=== PATIENT | female | born 2000 | race Caucasian/White ===

== ENCOUNTER 2023-05-06 23:19 | Inpatient (IN) | payer MEDICAID, SELFPAY ==
[2023-05-07] VITALS (124 sets, daily range): BP systolic 108–145; BP diastolic 60–97; PULSE 66–103; RESP 16–18; TEMP 36.4–37.3; O2SAT 94–100; BMI 32.1
[2023-05-07] MEDS: LACTATED RINGERS 1,000 ML 125 ML IV CONT ×3 (02:44→07:07)
[2023-05-07 03:01] LABS: Basophils Percent Auto 0.3 % (0.2-1.2); Eosinophils Percent Auto 0.1 % (0-4.4); Hematocrit 39.6 % (37.0-47.0); Hemoglobin 13.4 g/dL (12.0-15.0); Immature Granulocyte Absolute 0.06 K/mm3 (0.00-0.031); Immature Granulocyte Percent A 0.4 % (0-0.5); Lymphocytes Absolute Auto 0.68 K/mm3 (0.9-3.2); Lymphocytes Percent Auto 4.7 % (18.3-44.2); Mean Corpuscular HGB Conc 33.8 g/dl (32-36); Mean Corpuscular Hemoglobin 30.8 pg (26-34); Mean Platelet Volume 10.8 fl (7.4-10.4); Monocytes Absolute Auto 0.2 K/mm3 (0.1-0.6); Monocytes Percent Auto 1.6 % (2.6-8.5); Neutrophils Absolute Auto 13.3 K/mm3 (1.3-6.7); Neutrophils Percent Auto 92.9 % (45.5-73.1); Platelet Count Result 244 k/mm3 (150-375); Red Blood Count 4.35 M/mm3 (4.2-5.4); Red Cell Distribution Width 12.9 % (11.5-14.5); White Blood Count 14.3 K/mm3 (4.5-10.0)
[2023-05-07] MEDS: AMPICILLIN 2 GM/NS 100 ML 2 GM/100 ML BAG IVPB (03:02)
[2023-05-07] MEDS: fentaNYL CITRATE INJ (*CRX) 100 MCG/2 ML VIAL IV PUSH (04:07)
--- NOTE | 2023-05-07 05:31 | WPDANESEPP ---
Anes - Eval Pre Procedure Procedure: labor epidural Date/Time: 05/07/23 05:31 Surgeon: tutu Preop Diagnosis: pain during labor Pre Op Diagnosis: Contractions Patient Data Age: 22 Gender: F Height: 1.63 m Weight: 85 kg Allergies Allergy/AdvReac Type Severity Reaction Status Date / Time No Known Allergies Allergy Unverified 05/26/11 19:03 Laboratory Tests 05/07/23 02:46 WBC 14.3 H K/mm3 (4.5-10.0) RBC 4.35 M/mm3 (4.2-5.4) Hgb 13.4 g/dL (12.0-15.0) Hct 39.6 % (37.0-47.0) MCV 91.0 fl (80-100) MCH 30.8 pg (26-34) MCHC 33.8 g/dl (32-36) RDW 12.9 % (11.5-14.5) Plt Count 244 k/mm3 (150-375) MPV 10.8 H fl (7.4-10.4) Immature Gran % (Auto) 0.4 % (0-0.5) Neut % (Auto) 92.9 H % (45.5-73.1) Lymph % (Auto) 4.7 L % (18.3-44.2) [place] % (Auto) 1.6 L % (2.6-8.5) Eos % (Auto) 0.1 % (0-4.4) Baso % (Auto) 0.3 % (0.2-1.2) Lymph # (Auto) 0.68 L K/mm3 (0.9-3.2) [place] # (Auto) 0.2 K/mm3 (0.1-0.6) Eos # (Auto) 0.0 K/mm3 (0-0.3) Baso # (Auto) 0.0 K/mm3 (0.0-0.1) Abs Immat Gran (auto) 0.06 H K/mm3 (0.00-0.031) Absolute Neuts (auto) 13.3 H K/mm3 (1.3-6.7) Absolute Nucleated RBC 0.000 K/mm3 (0.0-0.012) Nucleated RBC % 0.0 % (0.0-0.2) RPR Pending Blood Type B Positive Antibody Screen Negative Patient hx anesthesia problems: none Family hx anesthesia problems: none Results Review: All pre-operative results and documents have been reviewed as part of the pre-operative evaluation. [facility] Past Medical History Medical History (Updated 05/07/23 @ 05:32 by Venita Pal CRNA) IUP (intrauterine ), incidental Obesity Social History Social History Smoking status: Never smoker Do You Feel Safe in your Home?: Yes Lack of Transportation: No Lack of Food: Never True Current Housing: I Have Housing Concerned About Future Housing: No Difficulty Paying Gas/Electric Bills: No Difficulty Paying for Meds: No Currently Unemployed: YES Education: High School Diploma/GED Difficulty w/ Childcare or Family Care: No Spiritual care concerns: No Exam Day of Procedure 05/07/23 05:31
--- NOTE | 2023-05-07 06:42 | PM.IMHP ---
H&P: HPI History of Present Illness Date/Time: 05/07/23 06:42 Chief Complaint: labor at 36 weeks Narrative: 22-year-old 2 para 0 at 36-,1/7 weeks gestation complaining of active labor. has uncomplicated prior. Group B strep is cervix is changed admission PMFSH Past Medical History Medical History IUP (intrauterine ), incidental Obesity Social History Social History Smoking status: Never smoker Do You Feel Safe in your Home?: Yes Lack of Transportation: No Lack of Food: Never True Current Housing: I Have Housing Concerned About Future Housing: No Difficulty Paying Gas/Electric Bills: No Difficulty Paying for Meds: No Currently Unemployed: YES Education: High School Diploma/GED Difficulty w/ Childcare or Family Care: No Spiritual care concerns: No Meds Home Medications and Allergies Allergies Allergy/AdvReac Type Severity Reaction Status Date / Time No Known Allergies Allergy Unverified 05/26/11 19:03 Exam Const: General: cooperative, healthy appearing, comfortable and overweight Orientation/consciousness: oriented to person, oriented to place and oriented to time Resp: Effort & Inspection: normal respiratory effort Cardio: Rate: regular rate Rhythm: regular rhythm Heart sounds: S1 normal heart sound present and S2 normal heart sound present GI: Inspection: normal to inspection : Speculum Exam - Cervix: normal appearance of the cervix ( cervix 4cm. FHTs reassuring. Epidural pending) H&P: Results Labs Labs: Short CBC 05/07/23 Range/Units 02:46 WBC 14.3 H (4.5-10.0) K/mm3 Hgb 13.4 (12.0-15.0) g/dL Hct 39.6 (37.0-47.0) % Plt Count 244 (150-375) k/mm3 Assessment and Plan Assessment and plan (1) Obesity: Code(s): E66.9 - Obesity, unspecified Status: Acute (2) IUP (intrauterine ), incidental: Code(s): Z33.1 - state, incidental Status: Acute Plan spontaneous vaginal is expected. Epidural placed
[2023-05-07] MEDS: AMPICILLIN 1 GM/NS 50 ML 1 GM/50 ML BAG IVPB ×2 (07:06→11:08)
--- NOTE | 2023-05-07 08:47 | PM.OBPNLAB ---
Pain Control Date/time seen: 05/07/23 08:47 Comments: Comfortable with epidural. Pelvic Exam Dilation (cm): 5 Effacement (%): 90 station: -1 Contractions Contraction pattern: Irregular Status status: Category l Comments: IUPC placed. Assessment and Plan Comments: A: IUP at 36 1/7 weeks with labor, SROM. P: Anticipate .
[2023-05-07] MEDS: OXYTOCIN 30 UNITS/NS 500 ML 30 UNITS/500 ML BAG IV CONT (10:20)
--- NOTE | 2023-05-07 11:57 | PM.OBPRVD ---
OB - Vaginal Delivery Note Procedure Delivery date: 05/07/23 Induction method: None Delivery augmentation: Pitocin Delivery monitor: External FHT, External Uterine and Internal Uterine Route of delivery: Episiotomy description: None Laceration Description: Periurethral Delivery repair: vicryl (3-0) Specimen: Yes (cord blood) Quantitative Blood Loss (ml): 50 Anesthesia type: Epidural Disposition: PACU Complications: None Narrative: 22 y/o at 36 1/7 weeks gestation who presented to the hospital with contractions. She had SROM with clear fluid on L&D. She was given ampicillin for unknown GBS in . She received an epidural for pain control. Her labor progressed and her cervix dilated completely. She pushed with good effort and delivered the infant's head to the perineum, followed by the body. The nose and mouth were bulb suctioned. After a delay, the cord was clamped and cut. The infant was handed off the field. Cord blood was collected. The placenta delivered spontaneously and was grossly normal in appearance. The usual 3 vessel cord was noted. A right sided periurethral laceration was sustained. This was reapproximated using 3 0 Vicryl in interrupted figure of eight fashion. Excellent hemostasis resulted as did excellent reapproximation of the normal anatomy. Needle and instrument counts were correct. The patient was taken to recovery room in stable condition. The infant went to the nursery in stable condition. I was present and scrubbed for the entire delivery. Baby Date of : 05/07/23 Time of : 11:41 Weeks of gestation at delivery: 36 Infant gender: Male presentation: vertex position: Left Occiput Anterior Placenta delivery description: Spontaneous and Normal Configuration Cord Vessel Description: 3 Vessels, Nuchal Cord (x2), True Knot and Around Body score one minute: 8 score five minutes: 9
--- NOTE | 2023-05-07 12:01 | PM.OBDSVD ---
DS: Admitting Diagnosis Discharge Date 05/09/23 Admitting Diagnosis IUP at 36 1/7 weeks Labor DS: Discharge Diagnosis Discharge Diagnosis (1) (normal spontaneous vaginal delivery): Code(s): O80 - Encounter for full-term uncomplicated delivery Status: Acute OB - DS: Summary OB Procedures : None OB Procedures Intrapartum: Spontaneous Vag Delivery and GBS prophylaxis OB Procedures: : None Peripartum Data Laceration Description: Periurethral Episiotomy description: None Time Spent with Patient Time attestation: Total time spent providing and/or coordinating discharge services: DS: Data Data Completed and Pending Labs on day of discharge: Labs from last 24 hours 05/07/23 02:46 WBC 14.3 H RBC 4.35 Hgb 13.4 Hct 39.6 MCV 91.0 MCH 30.8 MCHC 33.8 RDW 12.9 Plt Count 244 MPV 10.8 H Immature Gran % (Auto) 0.4 Neut % (Auto) 92.9 H Lymph % (Auto) 4.7 L [place] % (Auto) 1.6 L Eos % (Auto) 0.1 Baso % (Auto) 0.3 Lymph # (Auto) 0.68 L [place] # (Auto) 0.2 Eos # (Auto) 0.0 Baso # (Auto) 0.0 Abs Immat Gran (auto) 0.06 H Absolute Neuts (auto) 13.3 H Absolute Nucleated RBC 0.000 Nucleated RBC % 0.0 RPR Pending Blood Type B Positive Antibody Screen Negative Discharge Plan Discharge Attending physician on discharge: Jose Alejandro Salinas Discharging Clinician: Jose Alejandro Salinas Patient Disposition: Home, Self-Care Activity: pelvic rest Diet: regular Discharge Instructions: Call or return if temperature above 100.4? F, increased abdominal pain, increased vaginal bleeding or any new problems. Stand Alone Forms: General Discharge Information Follow-up/Referrals: Jose Alejandro Salinas MD [Physician] - 6 Weeks Discharge Medications: New ibuprofen 600 mg tablet 600 mg PO Q6H PRN (Reason: cramps) Qty: 30 0RF Date of admission: 05/06/23 23:19 Primary Care Provider: PHYSICIAN,CHURN OPERATOR MARGARINE Admitting Provider: Jose Alejandro Salinas Attending physician on admission: Jose Alejandro Salinas Condition: Stable
[2023-05-07] MEDS: OXYTOCIN 30 UNITS/NS 500 ML 30 UNITS/500 ML BAG 125 UNITS IV CONT (12:15)
[2023-05-07] MEDS: WITCH HAZEL 40 PADS 1 PAD TOPICAL (14:36)
[2023-05-07] MEDS: BENZOCAINE 20% AER SPR (*SP) 56 GM CAN 1 SPRAY TOPICAL (14:37)
--- NOTE | 2023-05-07 15:13 | OBPPTRN ---
1509-Patient transferred to post room #282 via wheelchair. Support person present. Oriented to unit, room, information board, rooming in, admission packet and security measures. Patient verbalizes understanding.
[2023-05-07 15:31] LABS: Rapid Plasma Reagin Non-Reactive (NonReactive)
[2023-05-08 04:30] VITALS: BP 135/93; PULSE 65; RESP 18; TEMP 36.6; O2SAT 96
[2023-05-08] MEDS: ACETAMINOPHEN 325 MG TABLET 650 MG PO ×3 (04:40→23:02)
[2023-05-08 04:54] LABS: Hematocrit 34.5 % (37.0-47.0); Hemoglobin 11.5 g/dL (12.0-15.0)
--- NOTE | 2023-05-08 05:26 | PC.NURSE ---
1809- discussed with mom feeding plans. Patient states that she is having trouble with and they had just attempted for 20 minutes and was worried about over exerting baby. She stated baby seems tired and isn't able to latch. blood sugar last checked on previous shift at 1735 and was 52 mg/dL. patient asked if she should give baby a bottle at this time. discussed with patient the option to pump and see what she is able to produce before moving forward with a bottle. Patient pumped for 15 minutes and had no output. Patient then fed baby 8mL at 1830 with assistance from this nurse as baby was sleepy and needed chin support to latch and slower flow nipple. Plan discussed to attempt for 15 minutes, pump for 15 minutes, and then feed baby 15 mL of formula of choice for remainder of feeds and patient agreed. 2139- patient pumped 0.5 mL and fed to baby via syringe and 1 mL of enfamil and stated she couldn't get baby to eat anymore at this time and requested baby be taken to nursery so she could rest. Blood sugar stable at 50 mg/dL. 2350- 11mL of enfamil fed to at this time by nurse, preemie nipple used. 0220- 8mL of enfamil fed at this time using both preemie nipple and syringe to encourage baby to eat. 0423- blood sugar of 75 mg/dL and brought back to mom. 20 minute attempt at feeding and mom stated baby latched a few times but she didn't witness any swallows, set up mom pumping at 0500.
[2023-05-08 07:20] VITALS: BP 132/87; PULSE 66; RESP 16; TEMP 36.8; O2SAT 95
--- NOTE | 2023-05-08 08:13 | WPDANLDPN2 ---
Anes-Prog Note L&D Date/Time: 05/08/23 08:13 Comfortable throughout: labor and delivery Neuraxial method: epidural Epidural/Spinal procedure site: clean & non-tender Neuro status: Neuro function grossly intact. Cardiovascular status: normal Respiratory status: normal Airway patency: baseline Mental status: baseline Post-Op hydration status: normal Vital Signs: Last Vital Signs Temp 97.9 F 05/08/23 04:30 Pulse 65 05/08/23 04:30 Resp 18 05/08/23 04:30 BP 135/93 H 05/08/23 04:30 Pulse Ox 96 05/08/23 04:30 O2 Del Method Room Air 05/07/23 15:30 Pain score (VAS): 0/10 Post-procedural complaints: none Patient feedback: Patient satisfied with anesthetic care.
[2023-05-08] MEDS: MULTIVIT/MIN/PREN/FOL AC/IRON TABLET 1 TAB PO (08:30)
[2023-05-08] MEDS: IBUPROFEN 600 MG TABLET PO ×3 (08:31→23:02)
--- NOTE | 2023-05-08 12:42 | PM.OBPNVD ---
OB - PN: Subj Subjective Date/time seen: 05/08/23 12:42 Narrative: Pain OK. Would like circumcision for son. OB - PN: Obj Data Labs 05/08/23 04:49 Labs: Laboratory Results - last 24 hr 05/07/23 05/08/23 02:46 04:49 Hgb 11.5 L Hct 34.5 L RPR Non-reactive OB - PN A/P Plan Comments: A: PPD#1, doing well. P: Routine care. Reviewed circ. Exam Psych: Other: AVSS ABD soft, nontender, fundus firm EXT nontender
--- NOTE | 2023-05-08 13:07 | PC.NURSE ---
[id number] Introductions were made, then consulted with patient to assess needs related to . Mother led the conversation with her?plans to feed?her infant, the?experience so far with the first feeding going well, then was sleepy. We discussed typical behaviors along with concerns of a late born at 36 weeks at 4-5.1 weight. Encouraged understanding of the benefits of skin to skin (demonstrating unwrapping infant and placing upright on her chest), keeping infant warm with a blanket while infants body is nestled between breast to help regulate blood sugar, reduce stress, regulate heart rate and respirations. Demonstrated stimulating with massage touch, changing positions to encourage wakefulness, checking diaper (changed a wet diaper), how to watch for early feeding cues, responsive feeding, feeding on demand (aiming for 8-12 times in 24 hours, about every 2-3 hours), milk production, hand expression, building/maintaining a milk supply, duration of feeding, signs of adequate intake/output and how to record on the feeding sheet. Mother works well with her with encouragement and education. Reviewed positioning and ear, shoulder, hip alignment, supporting the breast to facilitate a deep latch, asymmetrical latch (off-center), leading with the chin with a big, open, wide gape and body close to mother. Infant latched optimally to the right, then left breast in cross cradle position. Education given to the mother of how to visualize the suckling (with good rocking jaw motion), swallows (dropping of the lower jaw) and how to listen for drinking at the breast (the ka sound) which demonstrates well. Infant was able to maintain latch without pain to mother protecting the nipple with optimal positioning and latching. Reviewed comfort measures of healing with a warm, wet washcloth to rinse breast, then leave open to air-dry, good handwashing when or touching the breast/nipples to prevent infection. was bottle and syringe fed the 5mls of EBM that was pumped earlier and demonstrated paced bottle feeding. Mother voiced understanding of skin to skin, stimulating with massage touch, responsive feedings, hand expressed colostrum, talking to infant to encourage if it has been 2 -2.5 hours since the start of the last , to call if infant does not latch, or if there is discomfort with . Resources used for education were facilitated with the visual educational handouts/ tool/mom and baby guide. Inpatient/outpatient resources provided with feeding sheet, name written on the communication board, and the mom/baby guide. Parents voiced understanding of information, demonstrated learning and will call if there is a request for assistance. Reported to the Primary RN. [id number] Breast pump provided prior to meeting RN LOYDA due to ineffective . Instructions given on cleaning, care, usage, that there should be no pain, pumping schedule for milk production, collection, and storage of human milk. Patient was assessed for correct placement, flange size, to pump for comfort and nipple stretching/stimulation for adequate milk production every 3 hours (8 times in 24 hours) 1-2 times at night. Parents are encouraged to record the pumping schedule on the feeding sheet.?Mother voiced understanding of the education shared along with mom/baby guide and the pump measurement, flange fit handout for additional resource information. Mother pumped 10mls of EBM for the next feeding. Reported to the Primary RN. [phone] Purposefully rounded to assess needs. Mother shared they just changed a diaper that had stool and pee, then infant peed again while changing. Mother is attempting to latch to the left breast and infant is sleepy and reluctant. Encouraged mother to place upright [id number] to reset infants feeding cues and not to encourage sleeping at th
[2023-05-08 23:00] VITALS: BP 141/91; PULSE 64; RESP 16; TEMP 36.7; O2SAT 98
[2023-05-09 03:00] VITALS: BP 130/92
[2023-05-09 07:58] VITALS: BP 146/91; PULSE 61; RESP 18; TEMP 36; O2SAT 99
[2023-05-09] MEDS: MULTIVIT/MIN/PREN/FOL AC/IRON TABLET 1 TAB PO (08:19)
[2023-05-09] MEDS: IBUPROFEN 600 MG TABLET PO (08:20)
[2023-05-09] MEDS: ACETAMINOPHEN 325 MG TABLET 650 MG PO (08:21)
[2023-05-09] MEDS: LANOLIN (LANSINOH) 7.5 GM CREAM 1 APPLIC TOPICAL (08:22)
--- NOTE | 2023-05-09 08:47 | PM.OBPNVD ---
OB - PN: Subj Subjective Date/time seen: 05/09/23 08:47 Narrative: Pain OK. Would like to go home. OB - PN: Obj Data Labs 05/08/23 04:49 OB - PN A/P Plan day: 2 Comments: A: PPD#2, doing well. P: Home to f/u 6 weeks. Exam Psych: Other: AVSS ABD soft, nontender, fundus firm EXT nontender
--- NOTE | 2023-05-09 09:32 | PC.NURSE ---
On 05/09/23, the student, Merary Campa, provided care and completed [facility] documentation on this patient. I have reviewed the student's documentation and agree with the findings.
--- NOTE | 2023-05-09 11:27 | PC.NURSE ---
[id number] Purposefully rounded to assess for needs after discussion with Marketing Campaign Analyst Dr. Hughes. is at 5.86% weight loss at almost 48 hours old. There is a concern of and supplementing to get enough nutrition for growth. Mother shared latch is going well and effective for about 10-15 min, then she supplements with EBM and 22 belle formula. The last pumping session 12mls was expressed. Mother is encouraged to call for assistance with , doesn't wake to feed, or doesn't take adequate supplementation. Encouraged [id number] keeping infant warm between her breast with a blanket covering before and after feeding. Mother is encouraged to eat, rest, and pump at least 8 times in a 24 hour period to protect her milk supply. We reviewed expectations of the late infant and mother voiced understanding of education and when/how to call for assistance. Reported to the Primary RN. [phone] Hughes to support mother with her journey and feeding her for growth. Mother is [id number] with her is voices understanding of the feeding plan. 5100 - Purposefully rounded to assess for needs. Mother just finished , changing infants diaper and was about to supplement with formula. Encouraged mother to call for assistance if needed.
--- NOTE | 2023-05-09 11:47 | PC.NURSE ---
[id number] Introductions were made, then consulted with patient to assess needs related to . Mother led the conversation with her?plans to feed?her infant and the?experience so far. Encouraged understanding of the benefits of skin to skin (demonstrating unwrapping and placing upright on her chest), stimulating with massage touch, changing positions to encourage wakefulness, how to watch for early feeding cues, responsive feeding, feeding on demand (aiming for 8-12 times in 24 hours, about every 2-3 hours), milk production, building/maintaining a milk supply, duration of feeding, signs of adequate intake/output and how to record on the feeding sheet. Mother works well with her with encouragement and education. Reviewed positioning and ear, shoulder, hip alignment, supporting the breast to facilitate a deep latch, asymmetrical latch (off-center), leading with the chin with a big, open, wide gape and body close to mother. Infant latched optimally to the left, then the right breast in football position. Education given to the mother of how to visualize the suckling (with good rocking jaw motion), swallows (dropping of the lower jaw) and how to listen for drinking at the breast (the ka sound) infant demonstrates swallowing. Infant was able to maintain latch without pain to mother protecting the nipple with optimal positioning and latching. Reviewed comfort measures of healing with a warm, wet washcloth to rinse breast, then leave open to air-dry, good handwashing when or touching the breast/nipples to prevent infection. Mother voiced understanding of skin to skin, stimulating with massage touch, responsive feedings, hand expressed colostrum, talking to infant to encourage if it has been 2 -2.5 hours since the start of the last , to call if does not latch, or if there is discomfort with . Resources used for education were facilitated with the visual educational handouts/ tool/mom and baby guide. Inpatient/outpatient resources provided with feeding sheet, name written on the communication board, and the mom/baby guide. Parents voiced understanding of information, demonstrated learning and will call if there is a request for assistance. Reported to the Primary RN.
--- NOTE | 2023-05-09 14:02 | PC.NURSE ---
[id number] Purposefully rounded to assess for needs. Upon entering the room LORNA SCALES visualizes two visitors, with one holding . Grandma shares she was able to get 10mls of EBM down infant but wouldn't take more. Mother's last pumping session expressed 30mls of milk. Suggestion was made to divide the pumped milk in half and consider feeding 15 EBM, then top off with 5-15 of formula keeping the feeding experience in 30 minutes. The 30 minute feeding experience is nearing. LORNA SCALES stimulates and attempts to bottle feed EBM to the infant. 17mls of EBM is all infant would take holds the nipple in his mouth and doesn't suck anymore. placed [id number] between mothers large breast with two blankets covering. Dr. Hughes notified. Reported to the Primary RN.
--- NOTE | 2023-05-09 15:43 | PC.NURSE ---
[id number] Mother called LORNA SCALES to the room to discuss feeding options for the EBM and storage. Mother opted to use half of the EBM, store the other half and top off the feeding with the 22kcal formula. Earlier this afternoon mother made a decision to not breastfeed. She desires to pump and feed, then supplement with formula until her milk is full volume.
[2023-05-10 10:27] VITALS: BP 144/90; PULSE 78; RESP 18; TEMP 36.8; O2SAT 99
== END 2023-05-09 18:00 | disposition home or self-care (01) | DRG 560 ==
LOC: ANHLDR 05-07 12:02 → ANHOB2 05-07 15:13
PROVIDERS: Admitting Provider Obstetrics & Gynecology; Visit Provider Obstetrics & Gynecology
DX: O42.013 Preterm premature rupture of membranes, onset of labor within 24 hours of rupture, third trimester (principal); Z37.0 Single live birth; Z3A.36 36 weeks gestation of pregnancy; O60.14X0 Preterm labor third trimester with preterm delivery third trimester, not applicable or unspecified; O71.82 Other specified trauma to perineum and vulva; O69.82X0 Labor and delivery complicated by other cord entanglement, without compression, not applicable or unspecified; O69.1XX0 Labor and delivery complicated by cord around neck, with compression, not applicable or unspecified
CPT/HCPCS: 36415; 84112; 85014; 85018; 85025; 86592; 86850; 86900; 86901; A9270; J0290; J2590; J3010; J7120

== ENCOUNTER 2024-10-11 13:38 | Observation (INO) | payer OTHER, SELFPAY ==
[2024-10-11] VITALS (90 sets, daily range): BP systolic 104–120; BP diastolic 55–72; PULSE 76–135; RESP 18; TEMP 36.6–37.2; O2SAT 96–100; BMI 29.5
--- NOTE | ~2024-10-11 | US_ITS ---
EXAMINATION: US OB BPP multi gestation DATE: 10/11/2024 21:10 INDICATION: TECHNIQUE: Real-time ultrasound of the pelvis was performed. The interpreting radiologist was not present for the study. COMPARISON: None. FINDINGS: Baby A There is a living fetus. The placenta is posterior. cardiac activity and movement are noted. heart rate is 153 beats per minute (bpm). The amniotic fluid index is 11.26 cm, which is normal. Cervical length equals 3.52 cm Biophysical profile performed by the technologist: breathing (30 sec sustained breathing in 30 minutes): 2 out of 2 movement (3 gross body movements in 30 minutes: 2 out of 2 tone (one episode of zvonhrp-nclnirosc-wighdwf limb movement): 2 out of 2 Amniotic fluid pocket (2 cm): 2 out of 2 Total score: 8 out of 8 Baby B There is a living fetus. The placenta is anterior. cardiac activity and movement are noted. heart rate is 130 beats per minute (bpm). The amniotic fluid index is 10.84 cm, which is normal. Cervical length equals 3.52 cm Biophysical profile performed by the technologist: breathing (30 sec sustained breathing in 30 minutes): 2 out of 2 movement (3 gross body movements in 30 minutes: 2 out of 2 tone (one episode of dtmixsd-awayfcyya-peexlpw limb movement): 2 out of 2 Amniotic fluid pocket (2 cm): 2 out of 2 Total score: 8 out of 8 IMPRESSION: 1. Baby A -Single living fetus with heart rate of 153 bpm.Biophysical profile 8 out of 8. 2. Baby B -Single living fetus with heart rate of 130 bpm.Biophysical profile 8 out of 8. Reviewed, dictated and finalized at location Q. IMPRESSION: 1. Baby A -Single living fetus with heart rate of 153 bpm.Biophysical pro file 8 out of 8. 2. Baby B -Single living fetus with heart rate of 130 bpm.Biophysical pro file 8 out of 8.
--- NOTE | ~2024-10-11 | US_ITS ---
EXAMINATION: US OB transvaginal DATE: 10/11/2024 21:10 INDICATION: Twin during third trimester. Assess cervical length, biophysical profile and amniotic fluid index TECHNIQUE: Real-time ultrasound of the pelvis was performed. The interpreting radiologist was not present for the study. COMPARISON: None. FINDINGS: There are two living fetuses. Normal cervical length of 3.6 cm with no funneling. Fetus A: Presentation is vertex. Placenta is posterior. cardiac activity and movement are noted. heart rate is 153 beats per minute (bpm). Normal amniotic fluid index of 11.3 cm (5th%-95%: 8.3-24.5 cm at 33 weeks estimated gestational age). Biophysical profile performed by the technologist: breathing (30 sec sustained breathing in 30 minutes): 2 out of 2 movement (3 gross body movements in 30 minutes): 2 out of 2 tone (one episode of nomrqpc-sysxkhdha-yilkkmn limb movement): 2 out of 2 Amniotic fluid pocket (2 cm): 2 out of 2 Total score: 8 out of 8 Fetus B: Presentation is vertex. Placenta is anterior. cardiac activity and movement are noted. heart rate is 130 bpm. Normal amniotic fluid index of 10.8 cm. Biophysical profile performed by the technologist: breathing (30 sec sustained breathing in 30 minutes): 2 out of 2 movement (3 gross body movements in 30 minutes): 2 out of 2 tone (one episode of nkeuavm-wsenqscwq-dfdoofm limb movement): 2 out of 2 Amniotic fluid pocket (2 cm): 2 out of 2 Total score: 8 out of 8 IMPRESSION: 1. Living twin fetuses with heart rates of 153 BPM for fetus a and 1:30 BPM for fetus B. 2. Normal amniotic fluid indices of 11.3 cm for fetus a and 10.8 cm for fetus B. 3. Biophysical profile 8 out of 8 for fetus A and 8 out of 8 for fetus B. 4. Normal cervical length of 3.6 cm. Reviewed, dictated and finalized at location A. IMPRESSION: 1. Living twin fetuses with heart rates of 153 BPM for fetus a and 1:30 BPM for fetus B. 2. Normal amniotic fluid indices of 11.3 cm for fetus a and 10.8 cm for fetus B . 3. Biophysical profile 8 out of 8 for fetus A and 8 out of 8 for fetus B. 4. Normal cervical length of 3.6 cm.
[2024-10-11] MEDS: TERBUTALINE SULFATE 1 MG/ML VIAL 0.25 MG SUB-Q ×3 (15:38→20:13)
--- NOTE | 2024-10-11 15:55 | OBADM ---
This patient, Edda Perez, admitted to the OB room 119 for observation for contractions. Pt was originally here for NST but changed to observation status due to contractions. Patient/family oriented to hospital policies and general routines including ID bracelet, bed and alarms, visiting hours, pain management, procedures, bathroom and other care routines, personal items, smoking policy, room service/diet, and visiting hours. Patient/Family are encouraged to report perceived risks to care and to ask questions if they do not understand what they are told or what they should do.
[2024-10-11 16:20] LABS: Fetal Fibronectin Positive
--- NOTE | 2024-10-11 17:15 | PC.NURSE ---
Still can't reach anyone in the [facility] department. Called radiology view room to check if [facility] is in house. They will call me back.
--- NOTE | 2024-10-11 17:22 | PC.NURSE ---
Radiology control room called back and informed me [facility] went home at 1530 today. Requested them to call the [facility] tech in.
--- NOTE | 2024-10-11 17:33 | PC.NURSE ---
[facility] tech called back and informed me a cervical length wasn't a test she was allowed to be called back into the hospital to perform.
--- NOTE | 2024-10-11 17:39 | PC.NURSE ---
Dr. Missy De Jesus informed [facility] department states a cervical length isn't a test they are allowed to be called in for. Order received for BPP, ABHILASH, and cervical length.
[2024-10-11 18:36] LABS: Add Urine Microscopic? YES; Appearance Urine Cloudy (Clear); Glucose Urine UA Negative (Negative); Leukocyte Esterase Ur Negative LEU/UL (Negative); Nitrate Urine Negative (Negative); Non Pathogenic Casts 0-2; Specific Grav Ur 1.009 (1.001-1.035)
[2024-10-11] MEDS: ONDANSETRON HCL ODT 4 MG TABLET PO (18:39)
[2024-10-11] MEDS: LACTATED RINGERS 1,000 ML 999 ML IV CONT (22:15)
[2024-10-11] MEDS: LACTATED RINGERS 1,000 ML 125 ML IV CONT (23:15)
[2024-10-12] VITALS (13 sets, daily range): BP systolic 98–114; BP diastolic 46–69; PULSE 74–99; RESP 18; TEMP 36.3–36.5; O2SAT 99–100
--- NOTE | 2024-10-12 06:16 | P.HP_ITS ---
H&P: HPI History of Present Illness Date/Time: 10/12/24 06:16 Chief Complaint: contractions with twins Narrative: 24-year-old 2 para 0101 with a history of a 36 week gestation presents at 32 and 6 7th weeks gestation with twins with irregular contractions she denies any bleeding or loss of fluid. Ultrasound shows cervix to be 3.5cm and she responded to 3 doses of terbutaline and IV fluid and oral Procardia Review of Systems Review of Systems: All systems reviewed & are unremarkable except as noted in HPI and below PMFSH Past Medical History Medical History Obesity IUP (intrauterine ), incidental Social History Social History Smoking status: Never smoker Do You Feel Safe in your Home?: Yes Lack of Transportation: No Lack of Food: Never True Current Housing: I Have Housing Concerned About Future Housing: No Difficulty Paying Gas/Electric Bills: No Difficulty Paying for Meds: No Currently Unemployed: No Education: High School Diploma/GED Difficulty w/ Childcare or Family Care: No Spiritual care concerns: No Meds Home Medications and Allergies Home Medications ?Medication ?Instructions ?Recorded ?Confirmed ?Type vit no.95-ferrous 1 tablet PO DAILY 10/11/24 10/12/24 History fumarate 28 mg-folic acid 800 mcg tablet () Allergies Allergy/AdvReac Type Severity Reaction Status Date / Time No Known Allergies Allergy Verified 10/11/24 13:51 Vital Signs Vital Signs - 24 hr 10/11/24 14:53 10/11/24 14:58 10/11/24 15:03 Temperature Pulse Rate Respiratory Rate Blood Pressure Pulse Oximetry 100 100 100 Oxygen Delivery 10/11/24 15:08 10/11/24 15:13 10/11/24 15:18 Temperature Pulse Rate Respiratory Rate Blood Pressure Pulse Oximetry 100 100 100 Oxygen Delivery 10/11/24 15:30 10/11/24 15:35 10/11/24 15:36 Temperature Pulse Rate 77 Respiratory Rate Blood Pressure 113/72 Pulse Oximetry 100 100 Oxygen Delivery 10/11/24 15:38 10/11/24 15:40 10/11/24 15:45 Temperature 97.8 F Pulse Rate Respiratory Rate 18 Blood Pressure Pulse Oximetry 100 100 Oxygen Delivery 10/11/24 15:50 10/11/24 15:54 10/11/24 15:55 Temperature Pulse Rate Respiratory Rate Blood Pressure Pulse Oximetry 100 100 Oxygen Delivery Room Air 10/11/24 16:00 10/11/24 16:05 10/11/24 16:10 Temperature Pulse Rate Respiratory Rate Blood Pressure Pulse Oximetry 99 99 100 Oxygen Delivery 10/11/24 16:15 10/11/24 16:20 10/11/24 16:25 Temperature Pulse Rate 97 Respiratory Rate Blood Pressure 116/72 Pulse Oximetry 100 100 100 Oxygen Delivery 10/11/24 16:30 10/11/24 16:35 10/11/24 16:36 Temperature Pulse Rate 100 Respiratory Rate Blood Pressure 116/62 Pulse Oximetry 100 100 Oxygen Delivery 10/11/24 16:40 10/11/24 16:45 10/11/24 16:50 Temperature Pulse Rate Respiratory Rate Blood Pressure Pulse Oximetry 99 100 100 Oxygen Delivery 10/11/24 16:55 10/11/24 17:00 10/11/24 17:01 Temperature Pulse Rate 121 H Respiratory Rate Blood Pressure 112/70 Pulse Oximetry 100 100 Oxygen Delivery 10/11/24 17:05 10/11/24 17:10 10/11/24 17:15 Temperature Pulse Rate Respiratory Rate Blood Pressure Pulse Oximetry 100 100 100 Oxygen Delivery 10/11/24 17:20 10/11/24 17:25 10/11/24 17:29 Temperature Pulse Rate 112 H Respiratory Rate Blood Pressure 112/70 Pulse Oximetry 100 100 Oxygen Delivery 10/11/24 17:30 10/11/24 17:35 10/11/24 17:40 Temperature Pulse Rate Respiratory Rate Blood Pressure Pulse Oximetry 100 100 100 Oxygen Delivery 10/11/24 17:45 10/11/24 17:50 10/11/24 17:55 Temperature Pulse Rate Respiratory Rate Blood Pressure Pulse Oximetry 100 100 100 Oxygen Delivery 10/11/24 18:00 10/11/24 18:01 10/11/24 18:22 Temperature 98.9 F Pulse Rate 108 H Respiratory Rate 18 Blood Pressure 120/68 Pulse Oximetry 100 99 Oxygen Delivery 10/11/24 18:27 10/11/24 18:32 10/11/24 18:37 Temperature Pulse Rate Respiratory Rate Blood Pressure Pulse Oximetry 100 98 100 Oxygen Delivery 10/11/24 18:42 10/11/24 18:45 10/11/24 18:50 Temperature Pulse Rate Respiratory Rate Blood Pressure Pulse Oximetry 100 99 100 Oxygen Delivery 10/11/24 18:55 10/11/24 19:00 10/11/24 19:01 Temperature Pulse Rate 107 H Respiratory Rate Blood Pressure 116/68 Pulse Oximetry 100 100 Oxygen Delivery 10/11/24 19:05 10/11/24 19:10 10/11/24 19:15 Temperature Pulse Rate Respiratory Rate Blood Pressure Pulse Oximetry 100 99 100 Oxygen Delivery 10/11/24 19:16 10/11/24 19:21 10/11/24 19:26 Temperature Pulse Rate Respiratory Rate Blood Pressure Pulse Oximetry 97 98 97 Oxygen Delivery 10/11/24 19:31 10/11/24 19:36 10/11/24 19:41 Temperature Pulse Rate Respiratory Rate Blood Pressure Pulse Oximetry 97 97 97 Oxygen Delivery 10/11/24 19:45 10/11/24 19:50 10/11/24 19:55 Temperature Pulse Rate Respiratory Rate Blood Pressure Pulse Oximetry 100 100 100 Oxygen Delivery 10/11/24 20:00 10/11/24 20:05 10/11/24 20:09 Temperature Pulse Rate 92 105 H Respiratory Rate Blood Pressure 106/62 104/55 L Pulse Oximetry 100 100 Oxygen Delivery 10/11/24 20:10 10/11/24 20:13 10/11/24 20:18 Temperature Pulse Rate Respiratory Rate Blood Pressure Pulse Oximetry 100 100 100 Oxygen Delivery 10/11/24 20:23 10/11/24 20:28 10/11/24 20:33 Temperature Pulse Rate Respiratory Rate Blood Pressure Pulse Oximetry 98 100 99 Oxygen Delivery 10/11/24 20:38 10/11/24 20:43 10/11/24 20:48 Temperature Pulse Rate Respiratory Rate Blood Pressure Pulse Oximetry 99 99 99 Oxygen Delivery 10/11/24 20:51 10/11/24 20:56 10/11/24 21:00 Temperature 98.3 F Pulse Rate Respiratory Rate Blood Pressure Pulse Oximetry 98 100 Oxygen Delivery 10/11/24 21:01 10/11/24 21:06 10/11/24 21:11 Temperature Pulse Rate 104 H Respiratory Rate Blood Pressure 109/66 Pulse Oximetry 98 99 98 Oxygen Delivery 10/11/24 21:16 10/11/24 21:21 10/11/24 21:23 Temperature Pulse Rate Respiratory Rate Blood Pressure Pulse Oximetry 99 100 96 Oxygen Delivery 10/11/24 21:28 10/11/24 21:33 10/11/24 21:38 Temperature Pulse Rate Respiratory Rate Blood Pressure Pulse Oximetry 99 98 98 Oxygen Delivery 10/11/24 21:43 10/12/24 02:16 Temperature 97.7 F Pulse Rate 86 Respiratory Rate Blood Pressure 98/46 L Pulse Oximetry 98 Oxygen Delivery Exam Const: General: cooperative, healthy appearing and comfortable Nutritional Appearance: average body habitus Orientation/consciousness: oriented to person, oriented to place and oriented to time HENMT: Head: normal to inspection Resp: Effort & Inspection: normal respiratory effort Cardio: Rate: regular rate Rhythm: regular rhythm Heart sounds: S1 normal heart sound present and S2 normal heart sound present GI: Inspection: normal to inspection (Gravid soft uterus) H&P: Results Labs Labs: Urine 10/11/24 Range/Units 18:25 Urine Color Yellow (Yellow) Urine Appearance Cloudy H (Clear) Urine pH 7.0 (5.0-9.0) Ur Specific [place] 1.009 (1.001-1.035) Urine Protein Negative (Negative) mg/dL Urine Glucose (UA) Negative (Negative) mg/dL Assessment and Plan Assessment and plan (1) Twin : Code(s): O30.009 - Twin , unspecified number of placenta and unspecified number of amniotic sacs, unspecified trimester Status: Acute (2) labor: Code(s): O60.00 - labor without delivery, unspecified trimester Status: Acute Plan Home on the nifedipine with labor precautions
--- NOTE | 2024-10-12 06:21 | P.DS_ITS ---
DS: Admitting Diagnosis Discharge Date 10/12/2024 Admitting Diagnosis Twin / labor DS: Discharge Diagnosis Discharge Diagnosis (1) Twin : Code(s): O30.009 - Twin , unspecified number of placenta and unspecified number of amniotic sacs, unspecified trimester Status: Acute (2) labor: Code(s): O60.00 - labor without delivery, unspecified trimester Status: Acute DS: Summary Hospital Course Reason for hospitalization: Twin with contractions Hospital Course: Patient was admitted for routine NST for twins and contractions were seen. She received 3 doses of Brethine. She underwent ultrasound that showed the cervix to be 3.5cm and the contractions eventually stopped with nifedipine. Time Spent with Patient Time attestation: Total time spent providing and/or coordinating discharge services: Exam Const: General: cooperative, healthy appearing and comfortable Nutritional Appearance: average body habitus Orientation/consciousness: oriented to person, oriented to place and oriented to time HENMT: Head: normal to inspection Resp: Effort & Inspection: normal respiratory effort Cardio: Rate: regular rate Rhythm: regular rhythm Heart sounds: S1 normal heart sound present and S2 normal heart sound present GI: Inspection: normal to inspection (Gravid soft uterus) DS: Data Data Completed and Pending Labs on day of discharge: Labs from last 24 hours 10/11/24 10/11/24 18:25 15:51 Urine Color Yellow Urine Appearance Cloudy H Urine pH 7.0 Ur Specific [place] 1.009 Urine Protein Negative Urine Glucose (UA) Negative Urine Ketones 2+ H Ur Blood (Man) Negative Urine Nitrate Negative Urine Bilirubin Negative Urine Urobilinogen 0.2 Leukocyte Esterase Rfl Negative Urine RBC 0-2 Urine WBC 0-5 Ur Squamous Epith Cells None seen Urine Bacteria None seen Urine Casts 0-2 Fibronectin Positive Discharge Plan Discharge Attending physician on discharge: Mehran Ibarra Discharging Clinician: Mehran Ibarra Patient Disposition: Home Activity: may shower, no straining and pelvic rest Diet: heart healthy Wound Care Instructions: follow printed instructions Patient Instructions: Antibiotic Form Patient Language: Armenian Stand Alone Forms: General Discharge Information Follow-up/Referrals: Mehran Ibarra MD [Physician, BREAST TRIMMER] Discharge Medications: Continued PNV no.95-ferrous fumarate-FA [] 28 mg iron- 800 mcg tablet 1 tablet PO DAILY Date of admission: 10/11/24 13:38 Primary Care Provider: PHYSICIAN,ADVISOR [employer] Admitting Provider: Mehran Ibarra Attending physician on admission: Mehran Ibarra Condition: Stable
--- NOTE | 2024-10-12 06:28 | PC.NURSE ---
Dr. Missy De Jesus in to see pt. Pt continues to deny feeling contractions. No leakage of fluid or vaginal bleeding. discussed with pt her going home on pelvic rest, decreasing activity at home, and taking the Procardia 10 mg by mouth every 8 hrs, but if she should start feeling the contractions she can take the Procardia as close as every 4 hrs. Pt to have weekly cervical length checks in office and continue weekly NST's. Pt wants to go back to sleep for awhile. Pt will call when she is awake again to monitor babies.
== END 2024-10-12 09:33 | disposition home or self-care (01) ==
LOC: ANHLDR 15:05 → ANHOBPP 18:03
PROVIDERS: Admitting Provider Obstetrics & Gynecology; Visit Provider Obstetrics & Gynecology
DX: O60.03 Preterm labor without delivery, third trimester (principal); O30.003 Twin pregnancy, unspecified number of placenta and unspecified number of amniotic sacs, third trimester; Z3A.33 33 weeks gestation of pregnancy
CPT/HCPCS: 76817; 76819; 81001; 82731; 96360; 96361; 96372; A9270; G0378; G0379; J3105; J7120

== ENCOUNTER 2024-11-07 14:32 | Outpatient (RCR) | payer OTHER, SELFPAY ==
[2024-10-03 12:09] VITALS: BP 102/55; PULSE 84
[2024-10-17 12:49] VITALS: BP 110/67; PULSE 87
[2024-10-24 12:55] VITALS: BP 112/59; PULSE 88
[2024-10-31 12:40] VITALS: BP 111/84; PULSE 75
[2024-11-07 15:09] VITALS: BP 119/79; PULSE 91
== END 2024-11-15 09:26 | disposition other institution (70) ==
LOC: ANHOBOP 14:32
PROVIDERS: Visit Provider Obstetrics & Gynecology
DX: O30.003 Twin pregnancy, unspecified number of placenta and unspecified number of amniotic sacs, third trimester (principal); Z3A.32 32 weeks gestation of pregnancy
CPT/HCPCS: 59025

== ENCOUNTER 2024-11-10 05:01 | Inpatient (IN) | payer OTHER, SELFPAY ==
[2024-11-10] VITALS (120 sets, daily range): BP systolic 91–152; BP diastolic 50–88; PULSE 57–132; RESP 12–21; TEMP 36.2–36.9; O2SAT 92–100; BMI 30.5
--- NOTE | ~2024-11-10 | XR_ITS ---
Abdominal radiograph(s) INDICATION: No calculus for COMPARISON: None TECHNIQUE: 2 views supine AP abdomen FINDINGS/IMPRESSION: 1. Radiopaque cloth marker overlying left lateral hip. 2. No other radiopaque foreign body identified. 3. Nonspecific bowel gas pattern. 4. No acute bony abnormality. Reviewed, dictated and finalized at location R.
--- NOTE | 2024-11-10 05:31 | LDADM ---
This patient, Edda Perez, was admitted to Labor/Delivery/Recovery 102 on 11/10/24 at 05:01. Plans for labor, pain management and were discussed with patient. Patient/family oriented to hospital policies and general routines including ID bracelet, bed and alarms, visiting hours, pain management, procedures, bathroom and other care routines, personal items, smoking policy, room service/diet and guest tray routines, security routines, and visiting hours. Patient/Family are encouraged to report perceived risks to care and to ask questions if they do not understand what they are told or what they should do. See OBIX for further documentation.
[2024-11-10] MEDS: LACTATED RINGERS 1,000 ML 125 ML IV CONT ×2 (05:42→08:45)
[2024-11-10 05:44] LABS: Hematocrit 31.8 % (37.0-47.0); Hemoglobin 10.1 g/dL (12.0-15.0); Immature Granulocyte Percent A 0.4 % (0-0.5); Lymphocytes Absolute Auto 1.99 K/mm3 (0.9-3.2); Mean Corpuscular HGB Conc 31.8 g/dl (32-36); Mean Corpuscular Hemoglobin 27.4 pg (26-34); Mean Corpuscular Volume 86.2 fl (80-100); Nucleated Red Blood Cells Absolute Auto 0.000 K/mm3 (0.0-0.012); Nucleated Red Blood Cells Perc 0.0 % (0.0-0.2); Platelet Count Result 264 k/mm3 (150-375); Red Blood Count 3.69 M/mm3 (4.2-5.4); White Blood Count 9.6 K/mm3 (4.5-10.0)
[2024-11-10] MEDS: OXYTOCIN 30 UNITS/NS 500 ML 30 UNITS/500 ML BAG IV CONT (05:49)
[2024-11-10 06:30] LABS: Syphilis IgG/IgM Antibody Non-Reactive (Nonreactive)
--- NOTE | 2024-11-10 06:51 | PM.IMHP ---
H&P: HPI History of Present Illness Date/Time: 11/10/24 06:51 Chief Complaint: Twin at term Narrative: 24-year-old female at 38 weeks gestation for induction of labor secondary to twin and advanced cervical dilatation. Both are vertex. has been relatively unremarkable for a twin . She is negative for group B strep Review of Systems Review of Systems: All systems reviewed & are unremarkable except as noted in HPI and below PMFSH Past Medical History Medical History Obesity IUP (intrauterine ), incidental Family History Family History Other Diabetes mellitus Social History Social History Smoking status: Never smoker Second hand tobacco smoke exposure: No Substance use: never Do You Feel Safe in your Home?: Yes Lack of Transportation: No Lack of Food: Never True Current Housing: I Have Housing Concerned About Future Housing: No Difficulty Paying Gas/Electric Bills: No Difficulty Paying for Meds: No Currently Unemployed: No Education: High School Diploma/GED Difficulty w/ Childcare or Family Care: No Spiritual care concerns: No Meds Home Medications and Allergies Home Medications ?Medication ?Instructions ?Recorded ?Confirmed ?Type vit no.95-ferrous 1 tablet PO DAILY 10/11/24 11/10/24 History fumarate 28 mg-folic acid 800 mcg tablet () ferrous sulfate 325 mg (65 mg 325 mg PO DAILY 10/12/24 11/10/24 History iron) tablet (FeroSul) nifedipine 10 mg capsule 10 mg PO Q8H PRN Contractions 11/07/24 11/10/24 History Allergies Allergy/AdvReac Type Severity Reaction Status Date / Time No Known Allergies Allergy Verified 11/10/24 05:28 Vital Signs Vital Signs - 24 hr 11/10/24 05:20 11/10/24 05:30 11/10/24 05:31 Temperature 97.3 F L Pulse Rate 99 Blood Pressure 91/67 L Oxygen Delivery Room Air 11/10/24 05:46 11/10/24 06:01 11/10/24 06:15 Temperature Pulse Rate 75 76 79 Blood Pressure 116/79 115/82 102/72 Oxygen Delivery 11/10/24 06:30 11/10/24 06:45 Temperature 97.4 F L Pulse Rate 70 77 Blood Pressure 110/61 116/79 Oxygen Delivery Exam Const: General: cooperative, healthy appearing and comfortable Nutritional Appearance: average body habitus Orientation/consciousness: oriented to person, oriented to place and oriented to time HENMT: Head: normal to inspection Resp: Effort & Inspection: normal respiratory effort Cardio: Rate: regular rate Rhythm: regular rhythm Heart sounds: S1 normal heart sound present and S2 normal heart sound present GI: Inspection: normal to inspection (Gravid soft uterus) Auscultation: normal bowel sounds : External Female Exam: normal external appearance Speculum Exam - Vagina: normal appearance of the vagina Speculum Exam - Cervix: normal appearance of the cervix (Cervix 3 to 5/-1. AROM clear. FHTs reassuring x2) H&P: Results Labs Labs: Short CBC 11/10/24 Range/Units 05:16 WBC 9.6 (4.5-10.0) K/mm3 Hgb 10.1 L (12.0-15.0) g/dL Hct 31.8 L (37.0-47.0) % Plt Count 264 (150-375) k/mm3 Assessment and Plan Assessment and plan (1) Twin : Code(s): O30.009 - Twin , unspecified number of placenta and unspecified number of amniotic sacs, unspecified trimester Status: Acute Plan Medical induction of labor. Spontaneous vaginal delivery is expected. She is an epidural candidate
[2024-11-10] MEDS: ONDANSETRON INJ 4 MG/2 ML VIAL IV PUSH (09:51)
[2024-11-10] MEDS: ceFAZolin 2 GM in SODIUM CHLORIDE 0.9% IV 50 ML 100 ML IVPB (11:20)
--- NOTE | 2024-11-10 11:48 | PM.OBPRVD ---
OB - Vaginal Delivery Note Procedure Delivery date: 11/10/24 Twins 2: Date of : 11/10/24 Weeks of gestation at delivery: 38 gender: Male presentation: vertex position: Right Occiput Anterior Placental delivery description: Spontaneous Cord Vessel Description: 3 Vessels Narrative: Patient was admitted for induction of labor at 38 weeks gestation with twins vertex and vertex. Artificial rupture membranes performed in the a.m.. She breastfed unremarkable 1st stage of labor to completely dilated she was taken to the operating room and delivered baby a spontaneously in the AWILDA position. Anterior posterior shoulder delivered spontaneously. Cord clamped x2 cut passed off the table with an excellent cry. Baby B was noted to be vertex artificial rupture membranes performed. Head came down. Initially heart tones reassuring and then he heart tones remained in the 60s to 80s. Despite several attempts at pushing and resuscitation decision was made for rapid section she was prepped and draped and placed in the supine position under excellent epidural anesthesia the abdomen entered in Pfannenstiel fashion progressive layers of fascia. Fascia incised midline cure number not fashion bilaterally. Underlying muscles were sharply dissected parietal peritoneum by Nella clamps and by sharp dissection carried superior and inferiorly down the bladder. Incision made the head delivered in AWILDA position baby passed off the table placenta delivered intact manually uterus delivered on the abdomen wrapped in moist towel after assuring no membranes remained in the uterus, the uterus was closed continuous running locking 0 Vicryl from lateral edge to lateral edge. A 2nd imbricating running locking Vicryl lateral edge to lateral edge was undertaken. Hemostasis was assured. Ovaries and tubes appeared within normal limits uterus returned the abdomen. The hysterotomy incision inspected 1 last time noted be hemostatic the laps removed and accounted for the fascia closed with continuous running 0 Vicryl lateral edge to lateral edge the skin closed with 4 Monocryl. Patient tolerated procedure well all sponge, instrument counts were. We did do an x-ray afterwards this was an emergent procedure and no left ovary instruments are laps were noted
--- NOTE | 2024-11-10 11:53 | PM.DS ---
DS: Admitting Diagnosis Discharge Date 11/12/2024 Admitting Diagnosis Twenty at term DS: Discharge Diagnosis Discharge Diagnosis (1) Twin : Code(s): O30.009 - Twin , unspecified number of placenta and unspecified number of amniotic sacs, unspecified trimester Status: Acute DS: Summary Hospital Course Reason for hospitalization: Patient was admitted on 11/10/2024 for induction and twins underwent spontaneous vaginal delivery the 1st in an emergent of baby B Hospital Course: Patient's hospital course unremarkable. She remained afebrile. She was up, voiding without difficulty, eating regular diet, ambulating, and generally without complaints Time Spent with Patient Time attestation: Total time spent providing and/or coordinating discharge services: Exam Const: General: cooperative, healthy appearing and comfortable Nutritional Appearance: average body habitus Orientation/consciousness: oriented to person, oriented to place and oriented to time HENMT: Head: normal to inspection Resp: Effort & Inspection: normal respiratory effort Cardio: Rate: regular rate Rhythm: regular rhythm Heart sounds: S1 normal heart sound present and S2 normal heart sound present GI: Inspection: normal to inspection (Gravid soft uterus) Auscultation: normal bowel sounds : External Female Exam: normal external appearance Speculum Exam - Vagina: normal appearance of the vagina Speculum Exam - Cervix: normal appearance of the cervix (Cervix 3 to 4/70 5/-1. AROM clear. FHTs reassuring x2) DS: Data Data Completed and Pending Labs on day of discharge: Labs from last 24 hours 11/10/24 05:16 WBC 9.6 RBC 3.69 L Hgb 10.1 L Hct 31.8 L MCV 86.2 MCH 27.4 MCHC 31.8 L RDW 14.1 Plt Count 264 MPV 9.2 Immature Gran % (Auto) 0.4 Neut % (Auto) 69.0 Lymph % (Auto) 20.8 Elliott % (Auto) 7.2 Eos % (Auto) 1.8 Baso % (Auto) 0.8 Lymph # (Auto) 1.99 Elliott # (Auto) 0.7 H Eos # (Auto) 0.2 Baso # (Auto) 0.1 Abs Immat Gran (auto) 0.04 H Absolute Neuts (auto) 6.6 Absolute Nucleated RBC 0.000 Nucleated RBC % 0.0 Syphilis IgG/IgM Ab Non-reactive Blood Type B Positive Antibody Screen Negative Discharge Plan Discharge Attending physician on discharge: Mehran Ibarra Discharging Clinician: Mehran Ibarra Patient Disposition: Home Activity: may shower, no straining and pelvic rest Diet: heart healthy Wound Care Instructions: follow printed instructions Discharge Instructions: FEEDING PLAN: You are exclusively pumping at discharge. It is important to pump regularly and consistently to help initiate your milk supply. Regular milk removal is necessary for continued milk production. You need to pump at least 8 times every 24 hours. You can use hands on pumping to get better results with pumping and to encourage your breasts to produce more milk. Hands on pumping instructions: 1.? Massage your breasts before applying the breast pump. 2.? Pump both breasts at once. Use your hands to massage and compress while you pump. 3.? Stop pumping when the milk stops flowing 4.? Massage your breasts again 5.? End the pumping session by pumping or hand expressing one breast at a time while massaging and compressing your breast. Go back and forth between each breast until the milk stops flowing. 6.? Allow 25 minutes to complete this routine ? It is important to be sure you have a well-fitted pump flange. Consult your pump manual for recommended flange sizing or consult a professional. YOU SHOULD SET YOUR PUMP TO THE HIGHEST COMFORTABLE LEVEL. INCREASE THE SUCTION GRADUALLY UNTIL YOU REACH THE CORRECT SETTING. PUMPING SHOULD NOT HURT. CONSULT YOUR PUMP MANUAL FOR GUIDANCE ON PUMP SETTINGS AND FUNCTIONS. MOST PUMPS RECOMMEND 1-2 MINUTES OF THE QUICK ?MASSAGE? MODE, THEN SWITCHING TO THE SLOWER ?EXPRESSION? MODE FOR THE REMAINDER OF THE PUMPING SESSION. Pump each breast for 10-15 minutes. Pumping will help stimulate your breasts to produce milk. ?Follow the collection and storage sheet given to you in the Mom and Baby Guide. Remember to keep track of all feedings/elimination on the blue worksheet provided. Clean your pump parts between each pumping session according to the guidelines in your pump manual. It is recommended that you use a basin that is reserved for washing pump parts that is separate from your sink to prevent contamination. If you are pumping for an ill or , you should disinfect your pump parts once a day by boiling them in hot water for 5 minutes after cleaning. Ways to increase your milk supply: ? Increase frequency of pumping (10-12 times every 24 hours) ? Lots of skin to skin (if is able), especially before pumping ? Use warm washcloths before pumping and gentle breast massage before and during pumping ? Reduce stress, relax with music, get plenty of rest, and drink to thirst ? Warm pump flanges with warm water before pumping ? Pump until the milk stops flowing, then pump for 2 more minutes to fully empty the breast ? Pump at least once through the night, milk shouldn't remain in the breast for longer than 4 hours ? Power pumping: Pump for 15-20 minutes, rest for 10 minutes, pump for 10, rest for 10, pump for 10. Do this routine 1-2 times a day for several days or until you notice an increase in milk supply. Pump normally between power pumping sessions. You may contact the Team at [phone] for questions and appointments. Patient Instructions: Antibiotic Form Patient Language: Thai Stand Alone Forms: General Discharge Information Follow-up/Referrals: Mehran Ibarra MD [Physician, TINSEL MACHINE OPERATOR] Discharge Medications: New hydrocodone-acetaminophen 5-325 mg tablet 1 tablet PO Q4H PRN (Reason: pain) Qty: 20 0RF Continued PNV no.95-ferrous fumarate-FA [] 28 mg iron- 800 mcg tablet 1 tablet PO DAILY nifedipine 10 mg capsule 10 mg PO Q8H PRN (Reason: Contractions) Rx Instructions: Take every 8 hours. May increase to every 4 hours if having more than 4 contractions in an hour. ferrous sulfate [FeroSul] 325 mg (65 mg iron) tablet 325 mg PO DAILY Date of admission: 11/10/24 05:01 Primary Care Provider: PHYSICIAN,COMPUTING SYSTEMS MECHANIC Admitting Provider: Mehran Ibarra Attending physician on admission: Mehran Ibarra Condition: Stable
[2024-11-10] MEDS: OXYTOCIN 30 UNITS/NS 500 ML 30 UNITS/500 ML BAG 125 UNITS IV CONT (14:00)
--- NOTE | 2024-11-10 15:04 | PC.NURSE ---
Patient transferred to post room #277 via stretcher. Support person present. Oriented to unit, room, information board, rooming in, admission packet and security measures. Patient verbalizes understanding.
--- NOTE | 2024-11-10 15:15 | PC.NURSE ---
Introductions were made, then consulted with patient to assess needs related to . Discussed with mother her?plans to feed?her and the?experience so far. She is planning to exclusively pump and bottle feed. She does want to use a hospital pump while here. She plans to rest for awhile and will call out for pumping assistance when she is ready. Resources provided for inpatient and outpatient services with the feeding sheet, mom/baby guide and name written on the communication board. Mother voiced understanding of information and will call if there is a request for assistance. Reported to the Primary RN.
[2024-11-10] MEDS: LIDOCAINE 5% PATCH 1 PATCH TRANSDERM (16:16)
[2024-11-10] MEDS: KETOROLAC 15 MG/ML VIAL (*BKC) IV PUSH (18:10)
[2024-11-10] MEDS: DOCUSATE SODIUM 100 MG CAPSULE PO (18:11)
[2024-11-10] MEDS: ACETAMINOPHEN 500 MG TABLET 1000 MG PO (18:11)
[2024-11-10] MEDS: SIMETHICONE 80 MG TAB.CHEW PO (18:11)
[2024-11-10] MEDS: LORATADINE 10 MG TABLET PO (18:11)
[2024-11-10] MEDS: DEXTROSE 5%/0.45% SOD CHL 1,000 ML 125 ML IV CONT (18:58)
[2024-11-11] MEDS: ACETAMINOPHEN 500 MG TABLET 1000 MG PO ×4 (00:50→20:08)
[2024-11-11] MEDS: KETOROLAC 15 MG/ML VIAL (*BKC) IV PUSH ×2 (00:50→08:27)
[2024-11-11 04:15] VITALS: BP 115/77; PULSE 64; RESP 16; TEMP 36.6; O2SAT 100
[2024-11-11] MEDS: oxyCODONE HCL (*CRX) 5 MG TAB IR PO ×2 (04:37→16:55)
[2024-11-11 04:58] LABS: Hematocrit 26.7 % (37.0-47.0); Hemoglobin 8.4 g/dL (12.0-15.0); Immature Granulocyte Percent A 0.4 % (0-0.5); Lymphocytes Absolute Auto 1.36 K/mm3 (0.9-3.2); Mean Corpuscular HGB Conc 31.5 g/dl (32-36); Mean Corpuscular Hemoglobin 27.5 pg (26-34); Mean Corpuscular Volume 87.5 fl (80-100); Nucleated Red Blood Cells Absolute Auto 0.000 K/mm3 (0.0-0.012); Nucleated Red Blood Cells Perc 0.0 % (0.0-0.2); Platelet Count Result 185 k/mm3 (150-375); Red Blood Count 3.05 M/mm3 (4.2-5.4); White Blood Count 11.5 K/mm3 (4.5-10.0)
--- NOTE | 2024-11-11 06:49 | PM.OBPNVD ---
OB - PN: Subj Subjective Date/time seen: 11/11/24 06:49 Patient comments: no complaints, pain well controlled, tolerating diet and flatus present OB - PN: Obj Data Labs 11/11/24 04:18 Labs: Laboratory Results - last 24 hr 11/10/24 11/11/24 05:16 04:18 WBC 11.5 H RBC 3.05 L Hgb 8.4 L Hct 26.7 L MCV 87.5 MCH 27.5 MCHC 31.5 L RDW 14.5 Plt Count 185 MPV 9.3 Immature Gran % (Auto) 0.4 Neut % (Auto) 79.4 H Lymph % (Auto) 11.9 L [place] % (Auto) 6.8 Eos % (Auto) 1.1 Baso % (Auto) 0.4 Lymph # (Auto) 1.36 [place] # (Auto) 0.8 H Eos # (Auto) 0.1 Baso # (Auto) 0.1 Abs Immat Gran (auto) 0.05 H Absolute Neuts (auto) 9.1 H Absolute Nucleated RBC 0.000 Nucleated RBC % 0.0 Antibody Screen Negative OB - PN A/P Assessment and Plan (1) Twin : Code(s): O30.009 - Twin , unspecified number of placenta and unspecified number of amniotic sacs, unspecified trimester Status: Acute Plan start iron Time Spent With Patient Time: Total time spent is greater than 50% in coordination of care (as documented) at patient's floor/unit and/or counseling patient: Review of Systems Review of Systems: All systems reviewed & are unremarkable except as noted in HPI and below Exam Const: General: cooperative, healthy appearing and comfortable Nutritional Appearance: average body habitus Orientation/consciousness: oriented to person, oriented to place and oriented to time HENMT: Head: normal to inspection Resp: Effort & Inspection: normal respiratory effort Cardio: Rate: regular rate Rhythm: regular rhythm Heart sounds: S1 normal heart sound present and S2 normal heart sound present GI: Inspection: normal to inspection (Gravid soft uterus) Auscultation: normal bowel sounds : External Female Exam: normal external appearance Speculum Exam - Vagina: normal appearance of the vagina Speculum Exam - Cervix: normal appearance of the cervix (Cervix 3 to 4/70 5/-1. AROM clear. FHTs reassuring x2)
[2024-11-11 07:05] VITALS: BP 101/82; PULSE 75; RESP 16; TEMP 36.4; O2SAT 98
--- NOTE | 2024-11-11 07:52 | WPDANLDPN2 ---
Anes-Prog Note L&D Date/Time: 11/11/24 07:52 Comfortable throughout: section Neuraxial method: epidural Epidural/Spinal procedure site: clean & non-tender Neuro status: Neuro function grossly intact. Cardiovascular status: normal Respiratory status: normal Airway patency: baseline Mental status: baseline Post-Op hydration status: normal Vital Signs: Last Vital Signs Temp 97.8 F 11/11/24 04:15 Pulse 64 11/11/24 04:15 Resp 16 11/11/24 04:15 BP 115/77 11/11/24 04:15 Pulse Ox 100 11/11/24 04:15 O2 Del Method Room Air 11/10/24 19:35 Pain score (VAS): 0/10 I/O: Intake & Output 11/10/24 11/10/24 11/11/24 15:59 23:59 07:59 Intake Total 1000 1481.3 Output Total 1110 375 800 Balance -110 -375 681.3 Post-procedural complaints: none Patient feedback: Patient satisfied with anesthetic care.
--- NOTE | 2024-11-11 07:53 | WPDANLDNPN2 ---
Anes-Prog Note L&D-Neuraxial Date/Time: 11/11/24 07:53 Neuraxial medications: epidural PF morphine Opiod-related complaints: none Patient feedback: Patient satisfied with post-operative pain management.
[2024-11-11] MEDS: MULTIVIT/MIN/PREN/FOL AC/IRON TABLET 1 TAB PO (08:27)
[2024-11-11] MEDS: DOCUSATE SODIUM 100 MG CAPSULE PO ×2 (08:27→16:55)
[2024-11-11] MEDS: SIMETHICONE 80 MG TAB.CHEW PO ×3 (08:27→16:55)
--- NOTE | 2024-11-11 12:20 | PC.NURSE ---
Patient set up with a breast pump due to preference to pump and bottle feed. Mother was shown proper sizing and placement of flanges, pump settings, and cleaning of pump parts. Recommended 15 minutes of pumping both breasts simultaneously. Patient is aware that pumping should not hurt. She is encouraged to use the highest comfortable suction setting, gradually increasing the level as she pumps. Patient provided with a basin, bottle brush, and soap for cleaning parts between uses. Breast milk storage guidelines given. Discussed use of expressed breast milk by placing drops of milk in baby?s mouth with a clean finger, syringe feeding, bottle feeding, or mixing colostrum with a small volume of formula and feeding with a bottle.? Primary RN updated.??
[2024-11-11] MEDS: IBUPROFEN 600 MG TABLET PO ×2 (14:05→20:08)
[2024-11-11] MEDS: BENZOCAINE 20% AER SPR (*SP) 56 GM CAN 1 SPRAY (14:54)
[2024-11-11] MEDS: WITCH HAZEL 40 PADS 1 PAD (14:54)
[2024-11-11] MEDS: LIDOCAINE 5% PATCH 1 PATCH TRANSDERM (16:55)
[2024-11-11 20:36] VITALS: BP 117/67; PULSE 72; RESP 18; TEMP 36.6; O2SAT 99
[2024-11-12] MEDS: ACETAMINOPHEN 500 MG TABLET 1000 MG PO ×4 (02:10→20:30)
[2024-11-12] MEDS: IBUPROFEN 600 MG TABLET PO ×4 (02:10→20:30)
--- NOTE | 2024-11-12 07:02 | P.PNOB_ITS ---
OB - PN: Subj Subjective Date/time seen: 11/12/24 07:02 Patient comments: no complaints, pain well controlled, tolerating diet and flatus present [place] baby status: doing well (x2) OB - PN: Obj Data Labs 11/11/24 04:18 OB - PN A/P Assessment and Plan (1) IUP (intrauterine ), incidental: Code(s): Z33.1 - state, incidental Status: Acute (2) (normal spontaneous vaginal delivery): Code(s): O80 - Encounter for full-term uncomplicated delivery Status: Acute (3) Twin : Code(s): O30.009 - Twin , unspecified number of placenta and unspecified number of amniotic sacs, unspecified trimester Status: Acute Plan home Time Spent With Patient Time: Total time spent is greater than 50% in coordination of care (as documented) at patient's floor/unit and/or counseling patient: Review of Systems 2 Review of Systems: All systems reviewed & are unremarkable except as noted in HPI and below Exam 2 Const: General: cooperative, healthy appearing and comfortable Nutritional Appearance: average body habitus Orientation/consciousness: oriented to person, oriented to place and oriented to time HENMT: Head: normal to inspection Resp: Effort & Inspection: normal respiratory effort Cardio: Rate: regular rate Rhythm: regular rhythm Heart sounds: S1 normal heart sound present and S2 normal heart sound present GI: Inspection: normal to inspection (Gravid soft uterus) Auscultation: n ormal bowel sounds : External Female Exam: normal external appearance Speculum Exam - Vagina: normal appearance of the vagina Speculum Exam - Cervix: normal appearance of the cervix (Cervix 3 to 470 5/-1. AROM clear. FHTs reassuring x2)
[2024-11-12 07:25] VITALS: BP 117/71; PULSE 72; RESP 16; TEMP 36.8; O2SAT 99
[2024-11-12] MEDS: MULTIVIT/MIN/PREN/FOL AC/IRON TABLET 1 TAB PO (08:12)
[2024-11-12] MEDS: SIMETHICONE 80 MG TAB.CHEW PO ×3 (08:12→17:14)
[2024-11-12] MEDS: DOCUSATE SODIUM 100 MG CAPSULE PO ×2 (08:13→17:14)
--- NOTE | 2024-11-12 11:35 | PC.NURSE ---
Introductions were made, then consulted with patient to assess needs related to . Discussed with mother her?plans to feed?her infants and the?experience so far. Per mother she is consistently using the breast pump and getting up to 15mls with each pumping session and is successfully bottle feeding. Resources provided for inpatient and outpatient services with the feeding sheet, mom/baby guide and name written on the communication board. Mother voiced understanding of information and will call if there is a request for assistance. Reported to the Primary RN.
[2024-11-12] MEDS: oxyCODONE HCL (*CRX) 5 MG TAB IR PO (15:21)
[2024-11-12 20:30] VITALS: BP 120/75; PULSE 63; RESP 18; TEMP 36.6; O2SAT 100
[2024-11-13] MEDS: oxyCODONE HCL (*CRX) 5 MG TAB IR 10 MG PO (05:51)
[2024-11-13 07:50] VITALS: BP 116/84; PULSE 68; RESP 16; TEMP 36.6; O2SAT 100
--- NOTE | 2024-11-13 08:30 | PC.NURSE ---
Consulted with mother concerning needs and she shared her ability to independently use her breast pump and bottle feed her infants without any pain to her nipples. Mother is feeding appropriately for growth of infants and understands stimulating infant to eat if needed. Infants have had appropriate feedings in the last 24 hours meets the outcomes for weight, output, blood sugar and jaundice at this time. Reinforced understanding of milk production, transition of milk, signs of adequate intake, transition of stool, prevention/relief of engorgement, plugged ducts, mastitis, responsive feeding watching for feeding cues, community resources, and when to call a provider using the resource of the feeding sheet along with the mom and baby guide. Mother voiced understanding of the information shared, is confident to continue effectively feed her infants at home, when to call for assistance, denies any additional assistance or education at this time. Reported to the Primary RN.
[2024-11-13] MEDS: SIMETHICONE 80 MG TAB.CHEW PO ×2 (08:38→14:27)
[2024-11-13] MEDS: ACETAMINOPHEN 500 MG TABLET 1000 MG PO ×2 (08:38→14:27)
[2024-11-13] MEDS: IBUPROFEN 600 MG TABLET PO ×2 (08:38→14:27)
[2024-11-13] MEDS: MULTIVIT/MIN/PREN/FOL AC/IRON TABLET 1 TAB PO (08:39)
[2024-11-13] MEDS: DOCUSATE SODIUM 100 MG CAPSULE PO (08:39)
[2024-11-15 10:59] VITALS: BP 129/76; PULSE 76; RESP 18; TEMP 36.8; O2SAT 100
--- NOTE | 2024-11-16 06:50 | WPDHPUPDATE1 ---
History and Physical Update Update Date/Time: 11/16/24 06:50 History and Physical has been reviewed, including an updated exam of the patient. There are NO changes in the patient's condition. Risks, benefits, and alternatives have been discussed and questions answered. Patient agrees to proceed with procedure.
== END 2024-11-13 17:25 | disposition home or self-care (01) | DRG 540 ==
LOC: ANHLDR 11:56 → ANHOB2 15:11
PROVIDERS: Admitting Provider Obstetrics & Gynecology; Visit Provider Obstetrics & Gynecology
PROC: 10E0XZZ Delivery of Products of Conception, External Approach (ICD-10-PCS; CPT 59514; principal; 2024-11-10 11:05)
DX: O30.003 Twin pregnancy, unspecified number of placenta and unspecified number of amniotic sacs, third trimester (principal); O76 Abnormality in fetal heart rate and rhythm complicating labor and delivery; Z3A.38 38 weeks gestation of pregnancy; Z37.2 Twins, both liveborn
CPT/HCPCS: 36415; 74018; 85025; 86593; 86850; 86900; 86901; J0690; A9270; J1885; J2003; J2274; J2405; J2590; J2795; J7120